=== PATIENT | female | born 1985 | race Caucasian/White ===

== ENCOUNTER 2018-10-12 15:55 | Observation (INO) | payer OTHER ==
[~2018-10-12] VITALS: Ht 170.2 cm; Wt 77.6 kg
[2018-10-12] MEDS ORDERED: PREN1TAB80 PO (16:27)
[2018-10-12 16:41] VITALS: BP 123/69
[2018-10-12] MEDS ORDERED: RINGERS SOLUTION,LACTATED 1,000 ML IV ONE (17:00)
[2018-10-12 20:59] VITALS: BP 112/55
== END 2018-10-12 20:47 | disposition home or self-care (01) ==
LOC: 4S 15:55
PROVIDERS: ADMIT Obstetrics & Gynecology; ATTEND Obstetrics & Gynecology
DX: O62.9 Abnormality of forces of labor, unspecified (principal); Z3A.38 38 weeks gestation of pregnancy
CPT/HCPCS: 81002; G0378

== ENCOUNTER 2018-10-13 20:43 | Inpatient (IN) | payer OTHER ==
[~2018-10-13] VITALS: Ht 170.2 cm; Wt 77.6 kg
[~2018-10-13 20:43] MED LIST: PREN1TAB80 PO
[2018-10-13 21:04] VITALS: BP 122/66
[2018-10-14] MEDS ORDERED: OXYTOCIN 20 UNITS/LACT RINGERS 1,000 ML IV ONE (02:28)
[2018-10-14] MEDS ORDERED: METOCLOPRAMIDE HCL 5 MG/ML 2 ML VIAL IVP PRN (02:30)
[2018-10-14] MEDS ORDERED: CITRIC ACID/SODIUM CITRATE 30 ML SOLUTION UDCUP PO PRN (02:30)
[2018-10-14] MEDS ORDERED: LIDOCAINE/PF 1% 30 ML VIAL INJ PRN (02:30)
[2018-10-14] MEDS ORDERED: OXYTOCIN 30 UNITS/LACT RINGERS 500 ML IV ONE (02:32)
[2018-10-14] MEDS: RINGERS SOLUTION,LACTATED 1,000 ML IV SCH ×3 (02:50→11:35)
[2018-10-14] MEDS ORDERED: ROPIVACAINE HCL/PF 0.2% 100 ML ED ONE (02:51)
[2018-10-14 02:52] LABS: BASOPHILS % (AUTO) 0.4 % (0.0-2.0); EOSINOPHILS % (AUTO) 0.4 % (1.0-6.0); HEMATOCRIT 33.2 % (36-46); LYMPHOCYTES % (AUTO) 23.5 % (22.0-44.0); MEAN CORPUSCULAR HEMOGLOBIN 30.4 pg (26.0-34.0); MEAN CORPUSCULAR HGB CONC 33.1 G/dL (31.0-37.0); MEAN CORPUSCULAR VOLUME 92 fL (80-100); MONOCYTES # (AUTO) 0.7 K/uL (0.1-1.0); NEUTROPHILS # (AUTO) 5.6 K/uL (1.8-7.7); NEUTROPHILS % (AUTO) 67.7 % (40.0-70.0); PLATELET COUNT (AUTO)-OB 184 K/uL (150-450); RED BLOOD CELL COUNT(AUTO) 3.61 MIL/uL (4.00-5.20); RED CELL DISTRIBUTION WIDTH 14.2 % (11.5-14.5)
[2018-10-14] MEDS ORDERED: ONDANSETRON HCL 4 MG/2 ML VIAL IVP PRN (03:30)
[2018-10-14] MEDS ORDERED: NALBUPHINE HCL 10 MG/ML VIAL IVP PRN (03:30)
[2018-10-14] MEDS ORDERED: DiphenhydrAMINE HCL 50 MG/ML VIAL IVP PRN (03:30)
[2018-10-14] MEDS: ROPIVACAINE HCL/PF 0.2% 100 ML ED PRN ×2 (09:27→15:38)
[2018-10-14] MEDS ORDERED: OXYTOCIN 30 UNITS/LACT RINGERS 500 ML IV PRN (10:02)
[2018-10-14] MEDS ORDERED: RINGERS SOLUTION,LACTATED 1,000 ML IV ONE (16:05)
[2018-10-14] MEDS ORDERED: MEASLES/MUMPS/RUBELLA VACCINE, LIVE 0.5 ML/VIAL SQ ONE (16:15)
[2018-10-14] MEDS ORDERED: OxyCODONE HCL/ACETAMINOPHEN 5-325 MG TABLET PO PRN ×2 (16:15)
[2018-10-14] MEDS ORDERED: LANOLIN 7 GM OINTMENT TP PRN (16:15)
[2018-10-14] MEDS: BENZOCAINE 20%/MENTHOL 56 GM SPRAY CANISTER TP PRN (16:32)
[2018-10-14] MEDS: IBUPROFEN 600 MG TABLET PO PRN ×2 (16:32→22:27)
[2018-10-14] MEDS: GLYCERIN/WITCH HAZEL LEAF 40 PADS JAR TP PRN (16:32)
[2018-10-14] MEDS: MAGNESIUM HYDROXIDE SUSPENSION 30 ML UDCUP PO SCH (22:26)
[2018-10-15] MEDS: MAGNESIUM HYDROXIDE SUSPENSION 30 ML UDCUP PO SCH (08:32)
[2018-10-15] MEDS: IBUPROFEN 600 MG TABLET PO PRN (10:53)
[2018-10-15] MEDS: GLYCERIN/WITCH HAZEL LEAF 40 PADS JAR TP PRN (16:34)
[2018-10-15] MEDS: BENZOCAINE 20%/MENTHOL 56 GM SPRAY CANISTER TP PRN (16:34)
== END 2018-10-15 16:50 | disposition home or self-care (01) | DRG 807 ==
LOC: 4S 20:43 → OBSVTOIN 20:43 → 4S 10-14 10:15
PROVIDERS: ADMIT Obstetrics & Gynecology; ATTEND Obstetrics & Gynecology
PROC: 10907ZC Drainage of Amniotic Fluid, Therapeutic from Products of Conception, Via Natural or Artificial Opening (ICD-10-PCS; principal; 2018-10-14)
PROC: 10E0XZZ Delivery of Products of Conception, External Approach (ICD-10-PCS; 2018-10-14)
PROC: 0HQ9XZZ Repair Perineum Skin, External Approach (ICD-10-PCS; 2018-10-14)
PROC: 3E033VJ Introduction of Other Hormone into Peripheral Vein, Percutaneous Approach (ICD-10-PCS; 2018-10-14)
PROC: 3E0R3BZ Introduction of Anesthetic Agent into Spinal Canal, Percutaneous Approach (ICD-10-PCS; 2018-10-14)
PROC: 00HU33Z Insertion of Infusion Device into Spinal Canal, Percutaneous Approach (ICD-10-PCS; 2018-10-14)
DX: O70.0 First degree perineal laceration during delivery (principal); Z37.0 Single live birth; Z3A.38 38 weeks gestation of pregnancy
CPT/HCPCS: 86850; 86900; 86901; J2590; J2795; J7120

== ENCOUNTER 2020-07-26 09:35 | Observation (INO) | payer OTHER ==
[~2020-07-26] VITALS: Ht 170.2 cm; Wt 80.5 kg
[2020-07-26 10:10] VITALS: BP 123/69
== END 2020-07-26 11:00 | disposition home or self-care (01) ==
LOC: 4S 09:35
PROVIDERS: ADMIT Obstetrics & Gynecology; ATTEND Obstetrics & Gynecology
DX: Z34.93 Encounter for supervision of normal pregnancy, unspecified, third trimester (principal); Z3A.38 38 weeks gestation of pregnancy
CPT/HCPCS: 59025; 99219

== ENCOUNTER 2020-07-27 13:00 | Observation (INO) | payer OTHER ==
[2020-07-27 18:30] LABS: COVID AG,FIA SOURCE NASAL SWAB
== END 2020-07-27 14:10 | disposition home or self-care (01) ==
LOC: 4S 13:00
PROVIDERS: ADMIT Obstetrics & Gynecology; ATTEND Obstetrics & Gynecology
DX: Z34.93 Encounter for supervision of normal pregnancy, unspecified, third trimester (principal); Z20.822 Contact with and (suspected) exposure to COVID-19; Z3A.38 38 weeks gestation of pregnancy
CPT/HCPCS: 87426; 99219

== ENCOUNTER 2020-07-29 14:00 | Inpatient (IN) | payer OTHER ==
[~2020-07-29] VITALS: Ht 162.6 cm; Wt 77.1 kg
[2020-07-29] MEDS ORDERED: RINGERS SOLUTION,LACTATED 1,000 ML IV PRN (14:30)
[2020-07-29] MEDS ORDERED: OXYTOCIN 30 UNITS/LACT RINGERS 500 ML IV ONE (14:30)
[2020-07-29] MEDS ORDERED: FentaNYL CITRATE PF 100 MCG/2 ML VIAL IVP PRN (14:30)
[2020-07-29] MEDS ORDERED: METOCLOPRAMIDE HCL 5 MG/ML 2 ML VIAL IVP PRN (14:30)
[2020-07-29] MEDS ORDERED: CITRIC ACID/SODIUM CITRATE 30 ML SOLUTION UDCUP PO PRN (14:30)
[2020-07-29] MEDS ORDERED: METHYLERGONOVINE MALEATE 0.2 MG/ML VIAL IM PRN (14:30)
[2020-07-29] MEDS ORDERED: LIDOCAINE/PF 1% 30 ML VIAL SQ PRN (14:30)
[2020-07-29 14:56] LABS: BASOPHILS % (AUTO) 0.5 % (0.0-2.0); EOSINOPHILS % (AUTO) 0.3 % (1.0-6.0); HEMATOCRIT 36.1 % (36-46); LYMPHOCYTES # (AUTO) 1.1 K/uL (1.0-4.8); LYMPHOCYTES % (AUTO) 15.5 % (22.0-44.0); MEAN CORPUSCULAR HEMOGLOBIN 30.5 pg (26.0-34.0); MEAN CORPUSCULAR HGB CONC 33.1 G/dL (31.0-37.0); MEAN CORPUSCULAR VOLUME 92 fL (80-100); MONOCYTES # (AUTO) 0.5 K/uL (0.1-1.0); MONOCYTES % (AUTO) 6.8 % (2.0-9.0); NEUTROPHILS # (AUTO) 5.5 K/uL (1.8-7.7); NEUTROPHILS % (AUTO) 76.9 % (40.0-70.0); PLATELET COUNT (AUTO)-OB 228 K/uL (150-450); RED BLOOD CELL COUNT(AUTO) 3.92 MIL/uL (4.00-5.20); RED CELL DISTRIBUTION WIDTH 13.8 % (11.5-14.5)
[2020-07-29] MEDS ORDERED: DINOPROSTONE 10 MG VAGINAL SUPPOSITORY VG ONE (15:30)
[2020-07-29 15:34] VITALS: BP 107/61
[2020-07-29] MEDS: RINGERS SOLUTION,LACTATED 1,000 ML IV SCH ×3 (15:38→22:10)
[2020-07-29] MEDS ORDERED: MISOPROSTOL 50 MCG TABLET PO ONE (16:00)
[2020-07-29] MEDS ORDERED: BUPIVACAINE HCL/PF 0.25% 10 ML VIAL ONE (17:59)
[2020-07-29] MEDS ORDERED: ROPIVACAINE HCL/PF 0.2% 100 ML ED ONE (17:59)
[2020-07-29] MEDS ORDERED: ONDANSETRON HCL 4 MG/2 ML VIAL IVP PRN (18:15)
[2020-07-29] MEDS ORDERED: ROPIVACAINE HCL/PF 0.2% 100 ML ED PRN (18:15)
[2020-07-29] MEDS ORDERED: DiphenhydrAMINE HCL 50 MG/ML VIAL IVP PRN (18:15)
[2020-07-29] MEDS ORDERED: NALBUPHINE HCL 10 MG/ML VIAL IVP PRN (18:15)
[2020-07-29] MEDS ORDERED: OXYTOCIN 30 UNITS/LACT RINGERS 500 ML IV PRN (19:15)
[2020-07-29] MEDS ORDERED: OXYGEN THERAPY IH SCH (20:00)
[2020-07-30] MEDS ORDERED: ONDANSETRON HCL 4 MG/2 ML VIAL IVP PRN
[2020-07-30] MEDS ORDERED: NALBUPHINE HCL 10 MG/ML VIAL IVP PRN
[2020-07-30] MEDS ORDERED: DiphenhydrAMINE HCL 50 MG/ML VIAL IVP PRN
[2020-07-30] MEDS ORDERED: ROPIVACAINE HCL/PF 0.2% 100 ML ED PRN
[2020-07-30] MEDS ORDERED: GLYCERIN/WITCH HAZEL LEAF 40 PADS JAR TP PRN (01:00)
[2020-07-30] MEDS ORDERED: LANOLIN 7 GM OINTMENT TP PRN (01:00)
[2020-07-30] MEDS ORDERED: BENZOCAINE 20%/MENTHOL 56 GM SPRAY CANISTER TP PRN (01:00)
[2020-07-30] MEDS ORDERED: KETOROLAC TROMETHAMINE 30 MG/ML VIAL IVP PRN (03:30)
[2020-07-30] MEDS: RINGERS SOLUTION,LACTATED 1,000 ML IV SCH (07:58)
[2020-07-30] MEDS ORDERED: ACETAMINOPHEN/CODEINE 300-30 MG TABLET PO PRN ×2 (09:00)
[2020-07-30] MEDS: MAGNESIUM HYDROXIDE SUSPENSION 30 ML UDCUP PO SCH ×2 (10:54→21:00)
[2020-07-30] MEDS: IBUPROFEN 800 MG TABLET PO SCH ×2 (13:09→18:10)
[2020-07-31] MEDS: IBUPROFEN 800 MG TABLET PO SCH ×2 (00:22→06:58)
[2020-07-31] MEDS ORDERED: IBUP-2071 PO (10:03)
[2020-07-31] MEDS ORDERED: DOCU-275 PO (10:04)
== END 2020-07-31 10:40 | disposition home or self-care (01) | DRG 807 ==
LOC: OBSVTOIN 14:00 → 4S 14:00
PROVIDERS: ADMIT Obstetrics & Gynecology; ATTEND Obstetrics & Gynecology
PROC: 10E0XZZ Delivery of Products of Conception, External Approach (ICD-10-PCS; principal; 2020-07-30)
PROC: 3E0R3BZ Introduction of Anesthetic Agent into Spinal Canal, Percutaneous Approach (ICD-10-PCS; 2020-07-30)
PROC: 00HU33Z Insertion of Infusion Device into Spinal Canal, Percutaneous Approach (ICD-10-PCS; 2020-07-30)
DX: O80 Encounter for full-term uncomplicated delivery (principal); Z37.0 Single live birth; Z3A.39 39 weeks gestation of pregnancy
CPT/HCPCS: 86850; 86900; 86901; A9575; J1885; J2590; J2795; J3490; J7120